=== PATIENT | female | born 1930 | race Caucasian/White ===

== ENCOUNTER 2016-08-11 00:42 | Emergency (ER) | payer MEDICARE, OTHER ==
[2016-08-11 00:52] VITALS: BP 158/56
--- NOTE | 2016-08-11 01:42 | RADIOLOGY REPORT (SQ) ---
EXAM DESCRIPTION: PELVIS AP COMPLETED DATE/TIME: 08/11/2016 1:30 am REASON FOR STUDY: FALL COMPARISON: None. NUMBER OF VIEWS: One view TECHNIQUE: AP Pelvis LIMITATIONS: None. FINDINGS: There is osteopenia. The pelvic ring is partially obscured by overlying bowel loops. The re is no evidence for acute fracture or dislocation. The bilateral hip joints are maintained. Degen erative changes are seen at the bilateral sacroiliac joints and in the visualized lower lumbar spine. IMPRESSION: No radiographic evidence for acute fracture. TECHNICAL DOCUMENTATION: JOB ID: [id number] 2010 [employer]- All Rights Reserved
--- NOTE | 2016-08-11 01:46 | RADIOLOGY REPORT (SQ) ---
EXAM DESCRIPTION: FEMUR RIGHT COMPLETED DATE/TIME: 08/11/2016 1:30 am REASON FOR STUDY: FALL COMPARISON: AP pelvis 08/11/2016. NUMBER OF VIEWS: Two views. TECHNIQUE: Two radiographic images acquired of the right femur to include hip and knee in at least o ne projection. LIMITATIONS: None. FINDINGS: MINERALIZATION: Normal. BONES: No acute fracture or dislocation. Mild degenerative changes at the right hip joint and medial compartment of the right knee. SOFT TISSUES: No obvious swelling. IMPRESSION: No radiographic evidence for acute fracture. TECHNICAL DOCUMENTATION: JOB ID: [id number] [place]-[id number] 2010 [employer]- All Rights Reserved
--- NOTE | 2016-08-11 01:50 | RADIOLOGY REPORT (SQ) ---
EXAM DESCRIPTION: SHOULDER RIGHT 2 OR MORE VIEWS COMPLETED DATE/TIME: 08/11/2016 1:30 am REASON FOR STUDY: FALL COMPARISON: None. NUMBER OF VIEWS: Three views. TECHNIQUE: Internal rotation, external rotation, and Y view images acquired of the right shoulder. LIMITATIONS: None. FINDINGS: MINERALIZATION: Osteopenia. BONES: No acute fracture or dislocation. JOINTS: No dislocation. Degenerative changes at the acromioclavicular joint. VISUALIZED LUNGS AND RIBS: No pneumothorax. No displaced rib fracture. SOFT TISSUES: No radiopaque foreign body. IMPRESSION: No radiographic evidence of acute fracture. TECHNICAL DOCUMENTATION: JOB ID: [id number] [id number] 2010 [employer]- All Rights Reserved
[2016-08-11] MEDS ORDERED: ACETAMINOPHEN 325 MG TABLET PO ONE (02:08)
[2016-08-11] MEDS ORDERED: DIPH/PERTUSS(ACELL)/TETANUS VAC/PF 0.5 ML SYR (>=10YO) IM ONE (02:08)
--- NOTE | 2016-08-11 02:11 | ER Document Report ---
ED General - General Chief Complaint: Fall Stated Complaint: FELL/RIGHT ARM LACERATION Time Seen by Provider: 08/11/16 01:07 Notes: Patient is an 85-year-old female who presents after mechanical slip and fall while she was in the bathroom. States she tripped over her own feet. She did land onto her right shoulder and right hip. Was able to stand up and ambulate after the fall. States she has had a mild, dull, aching pain to her right forearm, right shoulder and right hip. Nothing improves or worsens her pain. No history of similar injuries in the past. She did not hit her head or neck. Denies any syncopal symptoms. TRAVEL OUTSIDE OF THE [place] IN LAST 30 DAYS: No - Related Data Allergies/Adverse Reactions: No Known Allergies Allergy (Unverified 08/11/16 00:55) Past Medical History - General Information source: Patient - Social History Smoking Status: Never Smoker Frequency of alcohol use: None Drug Abuse: None Lives with: Family Family History: Reviewed & Not Pertinent Patient has suicidal ideation: No Patient has homicidal ideation: No Renal/ Medical History: Denies: Hx Peritoneal Dialysis Review of Systems - Review of Systems Notes: Constitutional: Negative for fever. Eyes: Negative for visual changes. ENT: Negative for facial injury Cardiovascular: Negative for chest injury. Respiratory: Negative for shortness of breath. Gastrointestinal: Negative for abdominal injury. Genitourinary: Negative for genital injury Musculoskeletal: Positive for right shoulder and right hip injury Skin: Positive for laceration/abrasions. Neurological: Negative for head injury. Physical Exam - Vital signs Vitals: Temp Pulse Resp BP Pulse Ox 97.9 F 61 18 158/56 H 98 08/11/16 00:44 08/11/16 00:44 08/11/16 00:44 08/11/16 00:44 08/11/16 00:44 Interpretation: Hypertensive Notes: PHYSICAL EXAMINATION: GENERAL: Well-appearing, no acute distress. HEAD: Atraumatic, normocephalic. EYES: Pupils equal round and reactive to light, extraocular movements intact, sclera anicteric, conjunctiva are normal. ENT: nares patent, no oral pharyngeal trauma. No hemotympanum, no Hare's sign , no raccoon eyes. NECK: No midline cervical spine tenderness. Patient able to move their head to 45 bilaterally without any discomfort. LUNGS: Breath sounds clear to auscultation bilaterally and equal. No wheezes rales or rhonchi. HEART: Regular rate and rhythm without murmurs. CHEST WALL: No ecchymosis over the chest wall. ABDOMEN: Soft, nontender, normoactive bowel sounds. No guarding, no rebound. No abdominal bruising. EXTREMITIES: Normal range of motion, no pitting or edema. No long bone deformities. BACK: No midline spinal tenderness, step-offs, or deformities. NEUROLOGICAL: Face symmetric. Tongue protrudes midline. Extraocular motions intact. Pupils are 2 mm and equally reactive. Normal speech, normal gait. 5 out of 5 strength in both the distal and proximal upper and lower extremities bilaterally. Sensation is grossly intact throughout. Finger to nose testing normal. Pronator drift normal. PSYCH: Normal mood, normal affect. SKIN: Warm, Dry, normal turgor, skin avulsion to the right forearm Course - Re-evaluation Re-evalutation: 08/11/16 02:09 Presentation of a well appearing elderly patient in no acute distress, vitals within normal limits after a mechanical mechanical fall. Patient denies a syncopal episode as the cause for today's fall. No focal neurologic deficits on exam, no evidence of basilar skull fracture on exam without evidence of hemotympanum, raccoon eyes, or periauricular hematoma. No papilledema. Patient is not on anticoagulation. GCS is 15. No loss of consciousness. No episodes of vomiting. She denies striking her head or neck. Nexus criteria negative. Patient has no focal deformities or limited range of motion in any joint space. She did have pain to her right shoulder, hip and femur. X-rays of these areas are unremarkable. Chest and abdominal exam are benign without any focal tenderness, shortness of breath, or bruising over the chest or abdominal wall. Patient has no flank tenderness. There is a skin avulsion of the right forearm which was repaired with Steri-Strips after cleaning. Her tetanus shot has been updated. There is no obvious findings on trauma exam today and therefore no further imaging or evaluation will be obtained at this time. At this time will discharge with return precautions and follow-up recommendations. Verbal discharge instructions given a the bedside and opportunity for questions given. Medication warnings reviewed. Patient is in agreement with this plan and has verbalized understanding of return precautions and the need for primary care follow-up in the next 24-72 hours. - Vital Signs Vital signs: Temp Pulse Resp BP Pulse Ox 97.9 F 61 18 158/56 H 98 08/11/16 00:44 08/11/16 00:44 08/11/16 00:44 08/11/16 00:44 08/11/16 00:44 - Diagnostic Test Radiology reviewed: Image reviewed, Reports reviewed Radiology results interpreted by me: 08/11/16 02:10 Pelvis x-ray: No acute fracture dislocation. Shoulder x-ray: No acute fracture dislocation Discharge - Discharge Clinical Impression: Skin avulsion, Right hip pain Fall Qualifiers: Encounter type: initial encounter Qualified Code(s): W19.XXXA - Unspecified fall, initial encounter Right shoulder pain Qualifiers: Chronicity: acute Qualified Code(s): M25.511 - Pain in right shoulder Condition: Good Disposition: HOME, SELF-CARE Additional Instructions: You have been seen in the Emergency Department (ED) today following a mechanical fall. Your workup today did not reveal any injuries that require you to stay in the hospital. You can expect, though, to be stiff and sore for the next several days. You can take acetaminophen 1000 mg every 6 hours as needed for pain. You can apply a hot pack or electric heating pad to the sore areas. You can also use topical "Aspercreme with lidocaine" to sore areas as needed. Please follow up with your primary care doctor as soon as possible regarding today's ED visit and your recent accident. Call your doctor or return to the ED if you develop a sudden or severe headache , confusion, slurred speech, facial droop, weakness or numbness in any arm or leg, extreme fatigue, vomiting more than two times, severe abdominal pain, or other symptoms that concern you.
== END 2016-08-11 02:26 | disposition home or self-care (01) ==
LOC: ER 00:42
DX: S51.811A Laceration without foreign body of right forearm, initial encounter (principal); S49.91XA Unspecified injury of right shoulder and upper arm, initial encounter; S79.911A Unspecified injury of right hip, initial encounter; W01.0XXA Fall on same level from slipping, tripping and stumbling without subsequent striking against object, initial encounter; M79.631 Pain in right forearm; M25.511 Pain in right shoulder; M25.551 Pain in right hip; M89.8X5 Other specified disorders of bone, thigh; Z23 Encounter for immunization
CPT/HCPCS: 99283; 90471; 73552; 72170; 73030; 90715; A9270